=== PATIENT | male | born 1970 | race Caucasian/White ===

== ENCOUNTER → 2024-04-29 07:29 | Outpatient (REF) | payer BC, SELFPAY ==
[2024-04-29 08:05] LABS: % Basophils 0.5 % (0-2); % Eosinophils 2.4 % (0-6); % Lymphocytes 24.6 % (20.5-51.1); % Monocytes 7.7 % (1.7-9.3); % Neutrophils 63.8 % (42.2-75.2); Absolute Eosinophils 0.1 10^3/uL (0-0.7); Absolute Immature Granulocytes 0.1 10^3/uL (0-0.05); Absolute Lymphocytes 1.4 10^3/uL (1.2-3.4); Absolute Monocytes 0.4 10^3/uL (0.1-0.6); Absolute Neutrophils 3.7 10^3/uL (1.4-6.5); Hematocrit 41.8 % (39.0-52.0); Hemoglobin 14.9 g/dL (13.0-18.0); Mean Corp Hgb Conc. 35.6 g/dL (33.0-37.0); Mean Corpuscular Hgb 33.2 pg (27.0-31.0); Mean Corpuscular Volume 93.1 fL (80.0-94.0); Mean Platelet Volume 9.2 fL (7.4-10.4); Nucleated Red Blood Cells % 0 % (-); Platelet Count 180 10^3/uL (130-400); Red Blood Cell Count 4.49 10^6/uL (4.70-6.10); Red Cell Dist. Width 12.7 % (11.5-14.5); White Blood Cell Count 5.7 10^3/uL (4.8-10.8)
[2024-04-29 08:40] LABS: ALT (SGPT) 25 U/L (0-50); AST (SGOT) 25 U/L (17-59); Albumin 4.3 g/dl (3.5-5.0); Alkaline Phosphatase 72 U/L (38-126); Blood Urea Nitrogen 17 mg/dl (9-20); Calcium 9.6 mg/dl (8.4-10.2); Carbon Dioxide 26 mmol/L (22-30); Chloride 103 mmol/L (98-107); Glucose 101 mg/dl (70-99); HDL Cholesterol 48 mg/dl; LDL Cholesterol, Calculated 115 mg/dl; Potassium 4.4 mmol/L (3.5-5.1); Sodium 142 mmol/L (135-145); Total Bilirubin 0.8 mg/dl (0.2-1.3); Total Cholesterol 192 mg/dl (50-199); Triglyceride 147 mg/dl (10-149); Very Low Density Lipoprotein 29 mg/dl (0-30); eGFR > 60.00
[2024-04-29 10:29] LABS: PSA, Total - Screen 2.08 ng/ml (0.0-4.0); TSH Reflex To Free T4 0.86 uIU/ml (0.47-4.68)
== END ==
LOC: REG 07:29
PROVIDERS: ATTENDING PHYSICIAN Physician Assistant
DX: Z00.01 Encounter for general adult medical examination with abnormal findings (principal); E78.2 Mixed hyperlipidemia; Z12.5 Encounter for screening for malignant neoplasm of prostate; Z13.29 Encounter for screening for other suspected endocrine disorder
CPT/HCPCS: 36415; 80053; 80061; 84443; 85025; G0103

== ENCOUNTER 2024-06-23 08:26 | Emergency (ER) | payer BC, SELFPAY ==
[2024-06-23 08:30] VITALS: BP 179/90
--- NOTE | 2024-06-23 09:10 | ED.GENMED ---
History of Present Illness
General
Chief Complaint: Numbness
Source: patient
Exam Limitations: none
Time Seen by Provider: 06/23/24 08:52
Nursing documentation reviewed up to this point in time: agreed with
History of Present Illness
History of Present Illness:
53-year-old male presents emergency department complaining of numbness in his left foot, left posterior leg and left posterior thigh. This began about 2 hours ago. He denies any weakness. He was able to walk to the emergency department with
difficulty.
Past History
Past History
ED Past Medical History: Other (Back pain, herniated disc)
ED Past Surgical History: None
Social History
Tobacco: Non-smoker
Alcohol: None
Drug: None
Living: with family
Employment: Employed
Review of Systems
Review of Systems
Allergies reviewed?: Yes
All Other Systems: Not applicable
Constitutional: Reports no symptoms
EENT: Reports no symptoms
Respiratory: Reports no symptoms
Cardiac: Reports no symptoms
ABD/GI: Reports no symptoms
: Reports no symptoms
Musculoskeletal: Reports no symptoms
Skin: Reports no symptoms
Neurological: Reports numbness
Endocrine: Reports no symptoms
Hematologic/Lymphatic: Reports no symptoms
Psychiatric: Reports no symptoms
Phy Exam
Physical Exam
Physical Exam:
Physical Exam
General: no apparent distress, not acutely ill
Neck: supple. no meningeal signs. normal posterior pharynx
Heart: s1/s2 regular rate and rhythm, no murmur. equal radial
pulses.
HEENT: Pupils equal round reactive to light, EOMI
Lungs: no acute respiratory distress. clear bilaterally
Abdomen: normal bowel sounds. not tender. no CVAT
Neuro: alert and oriented. no focal neurological deficits cranial nerves II through XII intact
Skin: no rash
Psychiatric: well kept. interactive and cooperative
Extremities: no edema. no calf tenderness. negative homans. good distal pulses
Course
Orders/Labs/Results
Orders:
Orders
06/23/24 09:09
US Periph Venous LOWER Ext LT Urgent
Comment:
Reason For Exam: left thigh pain, numbness
06/23/24 11:22
Prednisone [Deltasone] 50 mg PO NOW STA
Vital Signs
Initial and Last Documented VS:
Initial Vital Signs
Temp Pulse Resp BP Pulse Ox
97.9 F 89 20 179/90 98
06/23/24 08:30 06/23/24 08:30 06/23/24 08:30 06/23/24 08:30 06/23/24 08:30
Last Documented Vital Signs
Temp Pulse Resp BP Pulse Ox
97.9 F 89 20 136/86 98
06/23/24 08:30 06/23/24 08:30 06/23/24 08:30 06/23/24 10:38 06/23/24 08:30
MDM/Problems Addressed
Differential Diagnosis Includes:
CVA, lumbar radiculopathy
MDM/Problems Addressed:
53-year-old male with left lumbar radiculopathy, do not suspect CVA. No motor deficits. Difficult to discern any sensory deficit. Patient ambulates without difficulty. Will have patient follow-up with pain management. Return precautions given.
*Radiology
Radiology exam reviewed: radiology read reviewed (Ultrasound left lower leg no acute findings)
*Pulse Oximetry
Patient hypoxic: no
*Critical Care Note
Total Time (30-74mins, 75-104mins- exclusive of procedures): Not Applicable
Patient Management
Social determinants of health affecting care: Living situation
Escalation/DeEscalation of care consider admission/obs:
Admit not indicated
ED Attending Note
-
Portions of this chart may have been created with voice recognition software.� Occasional wrong word or��sound alike� substitutions may have occurred due to the inherent limitations of voice recognition software.
Discharge Plan
Departure
Patient Disposition: Home (Routine Discharge)
Date of Disposition: 06/23/24
Time of Disposition: :24
Patient with high blood pressure during this ER visit?: Yes
Condition: Good
Discharge Problem:
Acute left lumbar radiculopathy
Instructions: Peripheral Neuropathy (DC), Sciatica ED, BLOOD PRESSURE
Prescriptions:
New
prednisone 50 mg tablet
50 mg PO DAILY Qty: 5 0RF
gabapentin [Neurontin] 300 mg capsule
300 mg PO TID PRN (Reason: pain/ numbness) Qty: 30 0RF
Rx Instructions:
Do not take if you have to drive, it can make you sleepy
No Action
hydrocodone-acetaminophen 1 TABLET tablet
1 tab PO Q4HPRN PRN (Reason: pain) Qty: 10 0RF
Referrals:
Nehemias Griggs MD [Active] - Call in 1-3 days for appt
Al Gross MD [Family Provider] -
Interventions
Interventions:
*Risk Screen - Suicide Last Done: 06/23/24 08:30
*General Assessment Last Done: 06/23/24 08:30
*Neglect/Abuse Screening Last Done: 06/23/24 08:30
ED- Neurological Assessment Last Done: 06/23/24 10:41
Discharge Date and Time
Print Language: ARABIC
[2024-06-23 10:38] VITALS: BP 136/86
[2024-06-23 11:00] VITALS: BP 134/74
[2024-06-23] MEDS: DELTASONE 50 MG PO (11:39)
== END 2024-06-23 11:44 | disposition home or self-care (01) ==
LOC: EMR 08:26
PROVIDERS: EMERGENCY PHYSICIAN Emergency Medicine; FAMILY PHYSICIAN Family Medicine
DX: M54.16 Radiculopathy, lumbar region (principal)
CPT/HCPCS: 99284; 93971

== ENCOUNTER → 2025-04-30 07:35 | Outpatient (REF) | payer BC, SELFPAY ==
[2025-04-30 08:22] LABS: Hematocrit 41.6 % (39.0-52.0); Hemoglobin 14.2 g/dL (13.0-18.0); Mean Corp Hgb Conc. 34.1 g/dL (33.0-37.0); Mean Corpuscular Volume 90.8 fL (80.0-94.0); Nucleated Red Blood Cells % 0 % (-); Platelet Count 156 10^3/uL (130-400); Red Cell Dist. Width 12.9 % (11.5-14.5)
[2025-04-30 08:57] LABS: ALT (SGPT) 25 U/L (0-50); AST (SGOT) 23 U/L (17-59); Albumin 4.4 g/dl (3.5-5.0); Alkaline Phosphatase 75 U/L (38-126); Blood Urea Nitrogen 14 mg/dl (9-20); Calcium 9.2 mg/dl (8.4-10.2); Carbon Dioxide 28 mmol/L (22-30); Chloride 105 mmol/L (98-107); Glucose 103 mg/dl (70-99); HDL Cholesterol 47 mg/dl; LDL Cholesterol, Calculated 119 mg/dl; Potassium 4.5 mmol/L (3.5-5.1); Sodium 139 mmol/L (135-145); Total Protein 7.0 g/dl (6.3-8.2); Very Low Density Lipoprotein 33 mg/dl (0-30); eGFR > 60.00
[2025-04-30 09:19] LABS: PSA, Total - Screen 0.81 ng/ml (0.0-4.0)
[2025-04-30 10:22] LABS: Urine Character Clear (Clear)
[2025-04-30 10:39] LABS: Urine Squamous Cell 0-2 /LPF (Few)
[2025-04-30 10:40] LABS: Urine Red Blood Cell 0-2 /HPF (0-2); Urine White Cell 0-2 /HPF (0-5)
== END ==
LOC: REG 07:35
PROVIDERS: ATTENDING PHYSICIAN Physician Assistant
DX: Z00.01 Encounter for general adult medical examination with abnormal findings (principal); R03.0 Elevated blood-pressure reading, without diagnosis of hypertension; Z71.89 Other specified counseling; Z68.32 Body mass index [BMI] 32.0-32.9, adult; Z23 Encounter for immunization; E78.2 Mixed hyperlipidemia; Z13.29 Encounter for screening for other suspected endocrine disorder; Z12.5 Encounter for screening for malignant neoplasm of prostate
CPT/HCPCS: 36415; 80053; 80061; 81003; 81015; 84443; 85025; 87086; G0103